=== PATIENT | female | born 1950 | race Caucasian/White ===

== ENCOUNTER 2016-11-21 12:08 | Emergency (ER) | payer MEDICARE, OTHER ==
[~2016-11-21 12:08] MED LIST: Iopamidol 370 76% 100 ML VIAL ONE
[2016-11-21 13:01] LABS: Base Excess 4.7 mEq/L (-2 - +2); Hemoglobin (Hb) 13.6 g/dL (11.7-16.1)
[2016-11-21 13:15] LABS: ALT (SGPT) 13 U/L (0-55); AST (SGOT) 12 U/L (5-34); Albumin 3.8 g/dL (3.4-4.8); Alkaline Phosphatase 73 U/L (40-150); Anion Gap 15 mmol/L (10-20); BUN (Urea Nitrogen) 7 mg/dL (9.8-20.1); Bilirubin, Total 0.5 mg/dL (0.2-1.2); Calc. Creatinine Clearance 0 mL/min (70-130); Calcium 8.6 mg/dL (7.8-10.44); Carbon Dioxide 24 mmol/L (23-31); Chloride 96 mmol/L (98-107); Estimated GFR-MDRD Greater than 90; Globulin 3.3 g/dL (2.4-3.5); Glucose 101 mg/dL (80-115); Potassium 3.5 mmol/L (3.5-5.1); Protein, Total 7.1 g/dL (5.8-8.1); Sodium 131 mmol/L (136-145)
[2016-11-21 13:17] LABS: Band 9 % (5-11); Eosinophils 1 % (0-10); Hemoglobin 14.2 g/dL (12.0-16.0); Lymphocytes 8 % (21-51); MDiff Complete? YES; Mean Corpuscular Volume 91.2 fl (81.0-99.0); Mean Platelet Volume 5.9 fL (7.4-10.4); Monocytes 8 % (0-10); Neutrophil 74 % (42-75); Platelet Count 388 thou/uL (130-400); Red Blood Cell (RBC) Count 4.44 mill/uL (4.20-5.40); White Blood Cell (WBC) Count 26.4 thou/uL (4.8-10.8)
[2016-11-21 13:18] LABS: CKMB 0.7 ng/mL (0-6.6)
[2016-11-21] MEDS ORDERED: predniSONE 20 MG TAB ONE (14:22)
--- NOTE | 2016-11-21 20:55 | RAD ---
CHEST TWO VIEWS 11/21/16 Comparison is made with the 05/22/11 study. The heart is normal in size. COPD is present with flattening of the diaphragm. No definite acute inf iltrate was seen. There are no effusions. Calcification is seen in the aortic arch. IMPRESSION: COPD and arteriosclerosis but no acute finding. POS: HOME
--- NOTE | 2016-11-21 22:06 | CT ---
CT ANGIO OF THE CHEST 11/21/[address] of the chest was performed emergently for evaluation of shortness of breath, chest pain an d an elevated D-dimer. A bolus of IV contrast was given and axial slices were acquired. Coronal and oblique coronal reformations were later made. There is excellent filling of the pulmonary arteries centrally and to the mid arterial levels. There was no sign of pulmonary embolism within these levels. Small distal emboli might be missed on this study. There is no sign of aortic dissection or aneurysm, but there is calcification in the aortic a rch. Scans through the lungs show some mild increase in the interstitial markings that is probably chroni c. It is diffuse in nature. There is a more isolated area of infiltrate or scar in the base of the r ight upper lobe anteriorly. It seems more likely to be an area of scarring than something acute. Fin dings of COPD are noted elsewhere. There are no effusions. No worrisome pulmonary nodules were detec candido. The mediastinum showed no sign of mass. There was a little increased adenopathy in the right hilum. The patient does appear to have a small pericardial effusion. The overall heart size is not excessiv e. The visible upper abdomen was unremarkable. IMPRESSION: 1. No evidence of pulmonary embolism or aortic dissection. 2. Small pericardial effusion. 3. Streaky areas in the right upper lobe anteriorly that are more likely scarring than acute in filtrate though there is a small amount of right hilar adenopathy. POS: HOME
== END 2016-11-21 14:30 | disposition home or self-care (01) ==
LOC: BURERS 12:08
DX: J44.1 Chronic obstructive pulmonary disease with (acute) exacerbation (principal); E78.5 Hyperlipidemia, unspecified; I10 Essential (primary) hypertension; Z87.891 Personal history of nicotine dependence; Z79.899 Other long term (current) drug therapy
CPT/HCPCS: 71020; 71275; 80053; 82553; 82805; 83880; 84484; 85025; 85379; 93005; J7506; J7620

== ENCOUNTER 2018-08-06 13:35 | Emergency (ER) | payer MEDICARE ==
[2018-08-06] MEDS ORDERED: methylPREDNISolone Sod Succ/PF 125 MG/2 ML VIAL ONE (13:59)
[2018-08-06 14:10] LABS: Hemoglobin 14.4 g/dL (12.0-16.0); Mean Corpuscular HGB CONC 33.7 g/dL (32.0-36.0); Mean Corpuscular Hemoglobin 29.8 pg (27.0-31.0); Mean Corpuscular Volume 88.4 fL (78.0-98.0); Mean Platelet Volume 5.9 fL (7.4-10.4); Platelet Count 417 thou/uL (130-400); RBC Distribution Width 11.5 % (11.5-14.5); Red Blood Cell (RBC) Count 4.83 mill/uL (4.20-5.40); White Blood Cell (WBC) Count 38.8 thou/uL (4.8-10.8)
[2018-08-06 14:20] LABS: ALT (SGPT) 22 U/L (8-55); AST (SGOT) 19 U/L (5-34); Albumin 3.9 g/dL (3.4-4.8); Alkaline Phosphatase 56 U/L (40-150); Anion Gap 16 mmol/L (10-20); BUN (Urea Nitrogen) 15 mg/dL (9.8-20.1); Bilirubin, Total 1.6 mg/dL (0.2-1.2); Calc. Creatinine Clearance 0 mL/min (70-130); Calcium 9.6 mg/dL (7.8-10.44); Carbon Dioxide 27 mmol/L (23-31); Chloride 95 mmol/L (98-107); Estimated GFR-MDRD 69; Globulin 3.2 g/dL (2.4-3.5); Glucose 86 mg/dL (80-115); Potassium 4.2 mmol/L (3.5-5.1); Protein, Total 7.1 g/dL (6.0-8.3); Sodium 134 mmol/L (136-145)
[2018-08-06 14:25] LABS: Band 13 % (5-11); Lymphocytes 9 % (21-51); MDiff Complete? YES; Monocytes 3 % (0-10); Neutrophil 75 % (42-75); PLT Morphology Comment Appears Increased; RBC Morphology Normal
[2018-08-06] MEDS ORDERED: Cefepime 1 GM VIAL ONE (14:32)
--- NOTE | 2018-08-06 21:00 | RAD ---
PORTABLE CHEST: 08/06/18 Comparison is made with a 05/07/17 study. COPD is present. There is increased prominence of the inters titial markings throughout the lungs bilaterally, especially in the lung bases and in the base of the right upper lobe. Given the cell changer time, it would seem unlikely that this is all due to fibrosi s, though a component of it may be. Superimposed infection seems more likely. There are no effusions. The heart size is normal. calcification is seen in the aorta arch as usual. IMPRESSION: COPD with increased interstitial markings since the last study. Interstitial pneumonias, mycoplasmal infections, and viral pneumonias particularly come to mind. POS: HOME
== END 2018-08-06 15:05 | disposition short-term general hospital (02) ==
LOC: BURERS 13:35
DX: A41.9 Sepsis, unspecified organism (principal); J44.0 Chronic obstructive pulmonary disease with (acute) lower respiratory infection; J18.9 Pneumonia, unspecified organism; I10 Essential (primary) hypertension; F17.210 Nicotine dependence, cigarettes, uncomplicated; E78.5 Hyperlipidemia, unspecified; Z79.899 Other long term (current) drug therapy
CPT/HCPCS: 71045; 80053; 83605; 85025; 87040; 93005; 94640; 94644; 94660; 94760; 96365; 96375; J0692; J1956; J2930; J7620

== ENCOUNTER 2021-05-10 12:59 | Outpatient (CLI) | payer MEDICARE | END 2021-05-10 13:00 | disposition home or self-care (01) | LOC: BURRAD 12:59 | PROVIDERS: ATTEND Family Medicine | DX: S69.92XA Unspecified injury of left wrist, hand and finger(s), initial encounter (principal); S52.502A Unspecified fracture of the lower end of left radius, initial encounter for closed fracture ==

== ENCOUNTER 2022-04-05 16:27 | Emergency (ER) | payer OTHER, MEDICARE ==
[2022-04-05] MEDS ORDERED: Ibuprofen 200 MG TAB ONE (16:47)
[2022-04-05] MEDS ORDERED: Boostrix 0.5 ML (Tdap) VIAL ONE (16:52)
[2022-04-05] MEDS ORDERED: Bacitracin 1 PK ONE (17:30)
== END 2022-04-05 17:53 | disposition home or self-care (01) ==
LOC: BURERS 16:27
DX: S51.812A Laceration without foreign body of left forearm, initial encounter (principal); S00.81XA Abrasion of other part of head, initial encounter; S80.212A Abrasion, left knee, initial encounter; S80.211A Abrasion, right knee, initial encounter; J44.9 Chronic obstructive pulmonary disease, unspecified; E78.00 Pure hypercholesterolemia, unspecified; I10 Essential (primary) hypertension; V59.49XA Driver of pick-up truck or van injured in collision with other motor vehicles in traffic accident, initial encounter
CPT/HCPCS: 90471; 90715

== ENCOUNTER 2023-03-31 12:29 | Inpatient (IN) | payer MEDICARE ==
[2023-03-31] MEDS ORDERED: HYDROcodone/Acetaminophen 5/325 mg Tablet ONE (12:49)
[2023-03-31] MEDS ORDERED: Ibuprofen 800 MG TAB ONE (12:49)
[2023-03-31 13:57] LABS: #Basophils 0.1 thou/uL (0.0-0.2); #Eosinphils 0.4 thou/uL (0.0-0.7); #Monocytes 0.5 thou/uL (0.11-0.59); #Neutrophils 10.2 thou/uL (1.40-6.50); %Basophils 0.7 % (0.0-1.0); %Eosinophils 3.2 % (0.0-10.0); %Lymphocytes 14.9 % (21.0-51.0); %Monocytes 3.8 % (0.0-10.0); %Neutrophils 77.3 % (42.0-75.0); Hematocrit 39.1 % (36.0-47.0); Hemoglobin 12.7 g/dL (12.0-16.0); Mean Corpuscular HGB CONC 32.5 g/dL (32.0-36.0); Mean Corpuscular Hemoglobin 30.8 pg (27.0-31.0); Mean Corpuscular Volume 94.9 fl (78.0-98.0); Mean Platelet Volume 5.3 fL (7.4-10.4); Platelet Count 318 10x3/uL (130-400); RBC Distribution Width 11.2 % (11.5-14.5); Red Blood Cell (RBC) Count 4.12 mill/uL (4.20-5.40); White Blood Cell (WBC) Count 13.2 10x3/uL (4.8-10.8)
[2023-03-31] MEDS ORDERED: Ipratropium/Albuterol 3 ML NEB ONE (13:59)
[2023-03-31 14:14] LABS: ALT (SGPT) 20 U/L (8-55); AST (SGOT) 13 U/L (5-34); Albumin 3.1 g/dL (3.4-4.8); Alkaline Phosphatase 62 U/L (40-110); Anion Gap 13 mmol/L (10-20); BUN (Urea Nitrogen) 15 mg/dL (9.8-20.1); Bilirubin, Total 0.6 mg/dL (0.2-1.2); Calc. Creatinine Clearance 0 mL/min (70-130); Calcium 8.3 mg/dL (7.8-10.44); Carbon Dioxide 23 mmol/L (23-31); Chloride 103 mmol/L (98-107); Estimated GFR 92; Glucose 99 mg/dL (83-110); Potassium 3.9 mmol/L (3.5-5.1); Protein, Total 6.1 g/dL (5.8-8.1); Sodium 135 mmol/L (136-145)
[2023-03-31 14:15] LABS: Troponin I 0.023 ng/mL (< 0.028)
[2023-03-31] MEDS ORDERED: methylPREDNISolone Sod Succ/PF 125 MG/2 ML VIAL ONE (16:07)
[2023-03-31] MEDS ORDERED: Ondansetron ODT 4 MG TAB SL PRN (16:23)
[2023-03-31] MEDS ORDERED: Ondansetron PF 4 MG/2 ML Vial IVP PRN (16:23)
[2023-03-31] MEDS ORDERED: Morphine 2 MG/ML VIAL SLOW IVP PRN (16:23)
[2023-03-31] MEDS ORDERED: Acetaminophen 325 MG TAB PO PRN (16:23)
[2023-03-31] MEDS ORDERED: fentaNYL 50 mcg/mL 1 mL Vial ONE (16:31)
[2023-03-31 18:27] VITALS: BMI 24.5
[2023-03-31] MEDS ORDERED: guaiFENesin ER 600 MG TAB PO PRN (20:38)
[2023-03-31] MEDS ORDERED: Bisacodyl 10 MG SUPP PR PRN (20:42)
[2023-03-31] MEDS ORDERED: hydrOXYzine 10 MG TAB PO SCH (21:00)
[2023-03-31] MEDS: Famotidine 20 MG TAB PO SCH (21:05)
[2023-03-31] MEDS: LevoFLOXacin 500 mg/D5W 500 MG in Premix Bag 1 BAG IVPB SCH (21:06)
[2023-03-31] MEDS: Montelukast Sodium 10 mg Tablet PO SCH (21:06)
[2023-03-31] MEDS ORDERED: Ipratropium/Albuterol 3 ML NEB NEB SCH (22:00)
[2023-03-31] MEDS ORDERED: methylPREDNISolone Sod Succ 40 MG VIAL IVP SCH (23:59)
[2023-04-01] MEDS: Ipratropium/Albuterol 3 ML NEB NEB SCH ×5 (00:14→23:46)
[2023-04-01] MEDS ORDERED: hydrOXYzine 10 MG TAB PO PRN (07:17)
[2023-04-01] MEDS: HYDROcodone/Acetaminophen 5/325 mg Tablet PO PRN ×3 (08:01→18:43)
[2023-04-01] MEDS ORDERED: Rosuvastatin 10 MG TAB PO SCH (09:00)
[2023-04-01] MEDS: Nebivolol HCl 5 MG TAB PO SCH (10:11)
[2023-04-01] MEDS: Citalopram 20 MG TAB PO SCH (10:11)
[2023-04-01] MEDS: Famotidine 20 MG TAB PO SCH ×2 (10:11→21:02)
[2023-04-01] MEDS: Ascorbic Acid 500 mg Chewable Tablet PO SCH (10:11)
[2023-04-01] MEDS: Furosemide 20 MG TAB PO SCH (10:12)
[2023-04-01] MEDS: Folic Acid 1 MG TAB PO SCH (10:30)
[2023-04-01] MEDS: LevoFLOXacin 500 mg/D5W 500 MG in Premix Bag 1 BAG IVPB SCH (20:55)
[2023-04-01] MEDS: Rosuvastatin 10 MG TAB PO SCH (21:01)
[2023-04-01] MEDS: Montelukast Sodium 10 mg Tablet PO SCH (21:02)
[2023-04-02 05:04] LABS: #Basophils 0.1 thou/uL (0.0-0.2); #Eosinphils 0.2 thou/uL (0.0-0.7); #Lymphocytes 2.3 thou/uL (1.20-3.40); #Monocytes 1.3 thou/uL (0.11-0.59); #Neutrophils 11.3 thou/uL (1.40-6.50); %Basophils 0.4 % (0.0-1.0); %Lymphocytes 15.4 % (21.0-51.0); %Monocytes 8.3 % (0.0-10.0); %Neutrophils 74.9 % (42.0-75.0); Hematocrit 35.4 % (36.0-47.0); Hemoglobin 11.6 g/dL (12.0-16.0); Mean Corpuscular HGB CONC 32.7 g/dL (32.0-36.0); Mean Corpuscular Hemoglobin 30.7 pg (27.0-31.0); Mean Corpuscular Volume 93.9 fl (78.0-98.0); Mean Platelet Volume 5.8 fL (7.4-10.4); Platelet Count 353 10x3/uL (130-400); RBC Distribution Width 11.7 % (11.5-14.5); Red Blood Cell (RBC) Count 3.78 mill/uL (4.20-5.40); White Blood Cell (WBC) Count 15.1 10x3/uL (4.8-10.8)
[2023-04-02 05:17] LABS: Anion Gap 12 mmol/L (10-20); BUN (Urea Nitrogen) 14 mg/dL (9.8-20.1); Calc. Creatinine Clearance 61 mL/min (70-130); Calcium 8.3 mg/dL (7.8-10.44); Carbon Dioxide 27 mmol/L (23-31); Chloride 101 mmol/L (98-107); Estimated GFR 81; Glucose 100 mg/dL (83-110); Potassium 4.5 mmol/L (3.5-5.1); Sodium 135 mmol/L (136-145)
[2023-04-02] MEDS: Ipratropium/Albuterol 3 ML NEB NEB SCH ×4 (05:56→23:38)
[2023-04-02] MEDS: HYDROcodone/Acetaminophen 5/325 mg Tablet PO PRN ×5 (06:00→23:44)
[2023-04-02] MEDS ORDERED: Acetaminophen 325 MG TAB PO PRN (07:20)
[2023-04-02] MEDS: Ascorbic Acid 500 mg Chewable Tablet PO SCH (10:00)
[2023-04-02] MEDS: Citalopram 20 MG TAB PO SCH (10:00)
[2023-04-02] MEDS: Folic Acid 1 MG TAB PO SCH (10:00)
[2023-04-02] MEDS: Furosemide 20 MG TAB PO SCH (10:00)
[2023-04-02] MEDS: Mometasone/Formoterol 60 PUFF AER INH SCH ×2 (10:01→20:39)
[2023-04-02] MEDS: Famotidine 20 MG TAB PO SCH ×2 (10:09→20:38)
[2023-04-02] MEDS: Nebivolol HCl 5 MG TAB PO SCH (15:15)
[2023-04-02] MEDS: Bisacodyl 5 MG TAB PO PRN (18:22)
[2023-04-02] MEDS: LevoFLOXacin 500 mg/D5W 500 MG in Premix Bag 1 BAG IVPB SCH (20:38)
[2023-04-02] MEDS: Rosuvastatin 10 MG TAB PO SCH (20:38)
[2023-04-02] MEDS: Montelukast Sodium 10 mg Tablet PO SCH (20:38)
[2023-04-03 05:08] LABS: #Basophils 0.1 thou/uL (0.0-0.2); #Eosinphils 0.5 thou/uL (0.0-0.7); #Lymphocytes 2.6 thou/uL (1.20-3.40); #Neutrophils 6.3 thou/uL (1.40-6.50); %Basophils 0.8 % (0.0-1.0); %Eosinophils 5.1 % (0.0-10.0); %Lymphocytes 24.8 % (21.0-51.0); %Monocytes 9.9 % (0.0-10.0); %Neutrophils 59.4 % (42.0-75.0); Hematocrit 34.8 % (36.0-47.0); Hemoglobin 11.2 g/dL (12.0-16.0); Mean Corpuscular HGB CONC 32.1 g/dL (32.0-36.0); Mean Corpuscular Hemoglobin 30.6 pg (27.0-31.0); Mean Corpuscular Volume 95.5 fl (78.0-98.0); Mean Platelet Volume 5.7 fL (7.4-10.4); Platelet Count 343 10x3/uL (130-400); RBC Distribution Width 11.6 % (11.5-14.5); Red Blood Cell (RBC) Count 3.64 mill/uL (4.20-5.40); White Blood Cell (WBC) Count 10.5 10x3/uL (4.8-10.8)
[2023-04-03] MEDS: Ipratropium/Albuterol 3 ML NEB NEB SCH ×3 (05:57→19:43)
[2023-04-03] MEDS: HYDROcodone/Acetaminophen 5/325 mg Tablet PO PRN ×3 (06:06→20:05)
[2023-04-03] MEDS: Mometasone/Formoterol 60 PUFF AER INH SCH ×2 (09:28→20:06)
[2023-04-03] MEDS: Nebivolol HCl 5 MG TAB PO SCH (09:29)
[2023-04-03] MEDS: Famotidine 20 MG TAB PO SCH ×2 (09:29→20:06)
[2023-04-03] MEDS: Bisacodyl 5 MG TAB PO PRN (09:30)
[2023-04-03] MEDS: Folic Acid 1 MG TAB PO SCH (09:30)
[2023-04-03] MEDS: Ascorbic Acid 500 mg Chewable Tablet PO SCH (09:30)
[2023-04-03] MEDS: Furosemide 20 MG TAB PO SCH (09:31)
[2023-04-03] MEDS: Citalopram 20 MG TAB PO SCH (09:31)
[2023-04-03] MEDS: Rosuvastatin 10 MG TAB PO SCH (20:01)
[2023-04-03] MEDS: Montelukast Sodium 10 mg Tablet PO SCH (20:02)
[2023-04-04] MEDS: Ipratropium/Albuterol 3 ML NEB NEB SCH ×3 (05:40→13:01)
[2023-04-04 06:16] VITALS: TEMP 98.6
[2023-04-04] MEDS: Nebivolol HCl 5 MG TAB PO SCH (08:11)
[2023-04-04] MEDS: Citalopram 20 MG TAB PO SCH (08:11)
[2023-04-04] MEDS: Ascorbic Acid 500 mg Chewable Tablet PO SCH (08:11)
[2023-04-04] MEDS: Furosemide 20 MG TAB PO SCH (08:11)
[2023-04-04] MEDS: Famotidine 20 MG TAB PO SCH (08:11)
[2023-04-04] MEDS: Mometasone/Formoterol 60 PUFF AER INH SCH (08:12)
[2023-04-04] MEDS: Folic Acid 1 MG TAB PO SCH (08:14)
[2023-04-04] MEDS: HYDROcodone/Acetaminophen 5/325 mg Tablet PO PRN (08:20)
[2023-04-04 09:19] VITALS: BP 157/72
[2023-04-05] MEDS ORDERED: Methotrexate Sodium 2.5 MG TAB PO SCH (20:52)
== END 2023-04-04 13:55 | disposition home health service (06) | DRG 184 ==
LOC: BURERS 12:29 → BURMED 16:25
PROVIDERS: ADMIT Family Medicine; ATTEND Nurse Practitioner
DX: S22.42XA Multiple fractures of ribs, left side, initial encounter for closed fracture (principal); J44.1 Chronic obstructive pulmonary disease with (acute) exacerbation; S32.19XA Other fracture of sacrum, initial encounter for closed fracture; I50.9 Heart failure, unspecified; I11.0 Hypertensive heart disease with heart failure; Z87.891 Personal history of nicotine dependence; Z79.899 Other long term (current) drug therapy; Z98.51 Tubal ligation status; W19.XXXA Unspecified fall, initial encounter
CPT/HCPCS: 36415; 71046; 71275; 72131; 80048; 80053; 83880; 84484; 85025; 85379; 94640; 94664; 94760; 96374; 96375; J1650; J1956; J2920; J2930; J3010; J7620; Q9967